=== PATIENT | male | born 1990 | race Caucasian/White ===

== ENCOUNTER 2019-08-30 11:04 | Emergency (ER) | payer SELFPAY ==
[2019-08-30 11:08] VITALS: BP 140/71; PULSE 90; TEMP 98.1; BMI 33.9
[2019-08-30] MEDS ORDERED: KETOROLAC TROMETHAMINE 60 MG/2 ML VIAL IM ONE (11:36)
[2019-08-30] MEDS ORDERED: KETOROLAC TROMETHAMINE 60 MG/2 ML VIAL ONE (11:49)
[2019-08-30] MEDS ORDERED: IBUPROFEN 400 MG TABLET (FP) PO ONE (11:56)
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
== END 2019-08-30 12:00 | disposition home or self-care (01) ==
LOC: JERFT 11:04
PROC: 3E0233Z Introduction of Anti-inflammatory into Muscle, Percutaneous Approach (ICD-10-PCS; principal; 2019-08-30)
DX: S60.211A Contusion of right wrist, initial encounter (principal); Y35.893A Legal intervention involving other specified means, suspect injured, initial encounter; Y93.89 Activity, other specified; Y92.89 Other specified places as the place of occurrence of the external cause; Y99.8 Other external cause status
CPT/HCPCS: 73110-TC-RT-FY; 73130-TC-RT-FY; 99281-25

== ENCOUNTER 2019-10-18 18:22 | Emergency (ER) | payer SELFPAY ==
[2019-10-18 18:36] VITALS: BP 153/72; PULSE 95; TEMP 98; BMI 30.5
--- NOTE | 2019-10-18 18:36 | PDOC ---
Rapid Medical Evaluation Time Seen by Provider: 10/18/19 18:34 Medical Evaluation: Allergies Allergy/AdvReac Type Severity Reaction Status Date / Time No Known Allergies Allergy Verified 08/30/19 11:08 10/18/19 18:35 I have performed a brief in-person evaluation of this patient. The patient presents with a chief complaint of: rib injury Pertinent physical exam findings:stable and in NAD, non-focal I have ordered the following: xrays The patient will proceed to the ED for further evaluation.
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
[2019-10-18] MEDS ORDERED: KETOROLAC TROMETHAMINE 30 MG/1 ML VIAL IM ONE (21:12)
[2019-10-18] MEDS ORDERED: KETOROLAC TROMETHAMINE 30 MG/1 ML VIAL ONE (21:28)
== END 2019-10-18 21:48 | disposition home or self-care (01) ==
LOC: JERFT 18:22
PROC: 3E0233Z Introduction of Anti-inflammatory into Muscle, Percutaneous Approach (ICD-10-PCS; principal; 2019-10-18)
DX: S22.32XA Fracture of one rib, left side, initial encounter for closed fracture (principal); Y00.XXXA Assault by blunt object, initial encounter; Y93.89 Activity, other specified; Y92.89 Other specified places as the place of occurrence of the external cause; Y99.0 Civilian activity done for income or pay; Y07.9 Unspecified perpetrator of maltreatment and neglect
CPT/HCPCS: 71046-TC-FY; 71101-TC-LT-FY; 99282-25

== ENCOUNTER 2021-12-13 20:17 | Emergency (ER) | payer OTHER ==
[2021-12-13 20:25] VITALS: BP 128/78; PULSE 103; TEMP 98; BMI 36.6
[2021-12-13] MEDS ORDERED: diazePAM 5 MG TABLET PO ONE (21:10)
[2021-12-13] MEDS ORDERED: KETOROLAC TROMETHAMINE 30 MG/1 ML VIAL IM ONE (21:10)
[2021-12-13] MEDS ORDERED: diazePAM 5 MG TABLET ONE (21:22)
[2021-12-13] MEDS ORDERED: KETOROLAC TROMETHAMINE 30 MG/1 ML VIAL ONE (21:22)
== END 2021-12-13 22:05 | disposition home or self-care (01) ==
LOC: JERFT 20:17
PROC: 3E0233Z Introduction of Anti-inflammatory into Muscle, Percutaneous Approach (ICD-10-PCS; principal; 2021-12-13)
DX: M54.2 Cervicalgia (principal); M54.50 Low back pain, unspecified; V49.50XA Passenger injured in collision with unspecified motor vehicles in traffic accident, initial encounter
CPT/HCPCS: 99284-25

== ENCOUNTER 2022-02-11 11:37 | Emergency (ER) | payer OTHER ==
[2022-02-11 12:10] VITALS: BP 137/82; PULSE 78; BMI 30.7
== END 2022-02-11 13:28 | disposition home or self-care (01) ==
LOC: JERFT 11:37
PROC: 3E0 Administration, Physiological Systems and Anatomical Regions, Introduction (ICD-10-PCS; principal; 2022-02-11)
DX: K02.9 Dental caries, unspecified (principal); K05.10 Chronic gingivitis, plaque induced; K08.89 Other specified disorders of teeth and supporting structures
CPT/HCPCS: 64400; 99284-25

== ENCOUNTER 2022-06-23 04:08 | Emergency (ER) | payer OTHER ==
[2022-06-23 04:19] VITALS: BP 151/81; PULSE 119; RESP 20; TEMP 97.6; BMI 29.8
[2022-06-23] MEDS ORDERED: DIPHTH,PERTUSS(ACELL),TET 0.5 ML DISP.SYRIN IM ONE ×2 (04:50→05:08)
[2022-06-23] MEDS ORDERED: LIDOCAINE HCL 1%, 10 MG/ML (20ML VIAL) ONE (05:47)
== END 2022-06-23 06:43 | disposition home or self-care (01) ==
LOC: JER 04:08
PROC: 0HQ1XZZ Repair Face Skin, External Approach (ICD-10-PCS; principal; 2022-06-23)
PROC: 3E0234Z Introduction of Serum, Toxoid and Vaccine into Muscle, Percutaneous Approach (ICD-10-PCS; 2022-06-23)
DX: S01.511A Laceration without foreign body of lip, initial encounter (principal); S80.212A Abrasion, left knee, initial encounter; S01.81XA Laceration without foreign body of other part of head, initial encounter; Y04.0XXA Assault by unarmed brawl or fight, initial encounter
CPT/HCPCS: 12002-25; 70450-TC; 70486-TC; 72125-TC; 90471; 90715; 99285-25

== ENCOUNTER 2022-07-07 12:13 | Emergency (ER) | payer OTHER ==
[2022-07-07 12:21] VITALS: BP 138/85; PULSE 117; RESP 18; TEMP 98.2; BMI 32.1
== END 2022-07-07 12:44 | disposition home or self-care (01) ==
LOC: JER 12:13 → JERFT 12:13
DX: Z48.02 Encounter for removal of sutures (principal)
CPT/HCPCS: 99281-25

== ENCOUNTER 2023-02-23 10:37 | Emergency (ER) | payer OTHER ==
[2023-02-23 10:40] VITALS: BP 145/82; PULSE 80; RESP 18; TEMP 97; BMI 29.8
[2023-02-23] MEDS ORDERED: KETOROLAC TROMETHAMINE 30 MG/1 ML VIAL IM ONE (12:11)
[2023-02-23] MEDS ORDERED: METHOCARBAMOL 500 MG TABLET PO ONE (12:11)
[2023-02-23] MEDS ORDERED: KETOROLAC TROMETHAMINE 30 MG/1 ML VIAL ONE (12:14)
[2023-02-23] MEDS ORDERED: METHOCARBAMOL 500 MG TABLET ONE (12:14)
== END 2023-02-23 12:50 | disposition home or self-care (01) ==
LOC: JER 10:37 → JERFT 10:37
PROC: 3E0233Z Introduction of Anti-inflammatory into Muscle, Percutaneous Approach (ICD-10-PCS; principal; 2023-02-23)
DX: M54.50 Low back pain, unspecified (principal); M54.2 Cervicalgia; V49.50XA Passenger injured in collision with unspecified motor vehicles in traffic accident, initial encounter
CPT/HCPCS: 72050-TC-FY; 72100-TC-FY; 99284-25